=== PATIENT | male | born 1995 | race Hispanic/Latino ===

== ENCOUNTER 2021-05-25 13:09 | Emergency (ER) | payer OTHER ==
[~2021-05-25] VITALS: Ht 177.8 cm; Wt 108.9 kg
[2021-05-25 14:09] LABS: BASOPHILS % (AUTO) 0.3 % (0.0-5.0); EOSINOPHILS % (AUTO) 0.5 % (0.0-8.0); HEMATOCRIT 28.5 % (42-54); MEAN CORPUSCULAR HEMOGLOBIN 39.7 pg (27.0-33.0); MEAN CORPUSCULAR HGB CONC 34.4 g/dL (32.0-36.0); MEAN CORPUSCULAR VOLUME 115.4 fL (79-99); MONOCYTES % (AUTO) 2.4 % (3.0-13.0); NEUTROPHILS % (AUTO) 77.5 % (40.0-77.0); PLATELET COUNT (AUTO) 140 K/uL (130-400); RED BLOOD CELL COUNT(AUTO) 2.47 MIL/uL (4.50-6.20); WHITE BLOOD COUNT (AUTO) 6.6 K/uL (4.8-10.8)
[2021-05-25 14:36] LABS: ALBUMIN 2.6 g/dL (3.5-5.0); CREATININE 0.8 mg/dL (0.5-1.5)
[2021-05-25 14:37] LABS: POTASSIUM 2.7 mmol/L (3.5-5.1)
[2021-05-25] MEDS ORDERED: FAMOTIDINE 20MG VIAL IV ONE (21:30)
[2021-05-25] MEDS ORDERED: METOCLOPRAMIDE 10 MG/2 ML VIAL IVP ONE (21:30)
[2021-05-25] MEDS ORDERED: POTASSIUM CHLORIDE IV ONE (21:30)
[2021-05-25] MEDS ORDERED: NACL 0.9% IV ONE (21:30)
[2021-05-25] MEDS ORDERED: ONDANSETRON 4MG INJ IVP ONE (21:30)
[2021-05-25] MEDS ORDERED: 0.9%NACL 1000ML 1,000 ML IV ONE ×2 (21:30→23:00)
[2021-05-25] MEDS ORDERED: POTASSIUM BICARB/CIT AC 25 MEQ TABLET.EFF PO ONE (23:00)
[2021-05-25] MEDS ORDERED: POTASSIUM CHLORIDE 20MEQ/100ML 100 ML IV ONE (23:13)
[2021-05-26] MEDS ORDERED: POTA20TA10 PO (01:59)
[2021-05-26] MEDS ORDERED: PHEN12S PR (01:59)
[2021-05-26] MEDS ORDERED: ONDA4TAB10 PO (01:59)
[2021-05-26] MEDS ORDERED: METO-296 PO (01:59)
[2021-05-26 02:19] VITALS: BP 118/70
== END 2021-05-26 02:44 | disposition home or self-care (01) ==
LOC: EDH 13:09
DX: E87.6 Hypokalemia (principal); E86.9 Volume depletion, unspecified; R11.2 Nausea with vomiting, unspecified; Z79.899 Other long term (current) drug therapy
CPT/HCPCS: 36415 ×2; 80053; 84132; 85025; 96361; 96374; 96375; 99284; J2405; J2765; J3480; J3490; J7040